=== PATIENT | male | born 1990 | race Caucasian/White ===

== ENCOUNTER 2017-09-10 19:35 | Emergency (ER) | payer MEDICAID ==
[~2017-09-10] VITALS: Ht 177.8 cm; Wt 90.3 kg
[2017-09-10 19:37] VITALS: Ht 177.8 cm; Wt 90.3 kg
[2017-09-10 20:41] LABS: BASOPHIL % 0.4 % (0-2); PLATELET COUNT 256 x10^3mcL (130-400); RED CELL DISTRIBUTION WIDTH 13.3 % (11.5-14.5)
[2017-09-10 20:50] LABS: CARBON DIOXIDE 26.7 mmol/L (21-32); CHLORIDE SERUM 106 mmol/L (98-107); CREATININE SERUM 1.4 mg/dL (0.7-1.3); GFR1 > 60 mL/min; GLUCOSE SERUM 111 mg/dL (74-106); POTASSIUM SERUM 3.1 mmol/L (3.5-5.1); SODIUM SERUM 144 mmol/L (136-145)
[2017-09-10 21:02] LABS: ALBUMIN 4.2 g/dL (3.4-5.0); ALKALINE PHOSPHATASE 85 U/L (46-116); ALT/SGPT 46 U/L (16-63); AST/SGOT 40 U/L (15-37); BILIRUBIN TOTAL 0.45 mg/dL (0.20-1.00); TOTAL PROTEIN, SERUM 7.6 g/dL (6.4-8.2)
[2017-09-10 21:04] LABS: AMPHETAMINE QUAL UR NONE DETECTED (See below)
[2017-09-10 21:33] VITALS: BP 145/72
== END 2017-09-10 21:33 | disposition home or self-care (01) ==
LOC: ED 19:35
PROVIDERS: Emergency Medicine
DX: K62.5 Hemorrhage of anus and rectum (principal); E87.6 Hypokalemia; Z88.6 Allergy status to analgesic agent
CPT/HCPCS: 36415

== ENCOUNTER 2017-09-30 08:30 | Day surgery (SDC) | payer MEDICAID ==
[~2017-09-30] VITALS: Ht 177.8 cm; Wt 90.3 kg
[2017-09-30 09:02] VITALS: BP 149/79
[2017-09-30 13:36] VITALS: BP 128/69
== END 2017-09-30 13:25 | disposition home or self-care (01) ==
LOC: GI 08:30
PROVIDERS: Internal Medicine Gastroenterology
PROC: 0DJD8ZZ Inspection of Lower Intestinal Tract, Via Natural or Artificial Opening Endoscopic (ICD-10-PCS; principal; 2017-09-30 11:30)
DX: K64.8 Other hemorrhoids (principal); K62.5 Hemorrhage of anus and rectum
CPT/HCPCS: 45378; J1200; J1610; J2250; J2310; J3010; J3490